=== PATIENT | female | born 1930 | race Caucasian/White ===

== ENCOUNTER 2017-08-20 18:41 | Emergency (ER) | payer OTHER, BC ==
[~2017-08-20] VITALS: Ht 157.5 cm; Wt 64.6 kg
[~2017-08-20 18:41] MED LIST: ACIPHEX20 MG PO; ASPIR-LOW81 MG PO; CHILD ASPIRIN81 M1 PO; CHLORDIAZEPOXI1 EAC1 PO; COUMADIN PO; CYANOCOBALAM1000 MCG PO; Coumadin dosing per PO; DAILY VITAMIN1 EAC4 PO; FEOSOL325 MG PO; FERROUS SULFAT325 MG PO; HYDROCODON-ACE1 EAC7 PO; LIBRAX, CLI1 CAPSULE PO; LIPITOR10 MG PO; LOVENOX40 MG/0.4 SC; METAMUCIL FIBE3.4 GM PO; METAMUCIL0.52 GM PO; METOPROLOL TART25 MG PO; MIGRAINE FORMU1 EACH PO; MUCINEX NASAL SPRAY BOTH NARES; Metamucil Packet PO; PERCOCET 5/31 TABLET PO; Proventil,Ventolin H IH; REFRESH EYE DR1 EACH BOTH EYES; RESTASIS 01 DROP/0.4 BOTH EYES; SENOKOT S,PE1 TABLET PO; TOPROL XL25 MG PO; TYLENOL EXTRA500 MG PO; Toprol XL PO; VITAMIN D2000 INTUN PO; VITAMIN D2000 UNIT PO; VITAMIN D31000 UNI2 PO; Vicodin,Lortab 5/500 PO; Vitamin B-12 PO
[2017-08-20 19:04] LABS: BASOPHIL (%) 1.2 % (0-1); BASOPHIL COUNT 0.1 K/uL (0-0.1); EOSINOPHIL (%) 4.1 % (0-5); EOSINOPHIL COUNT 0.4 K/uL (0-0.3); HEMATOCRIT 36.1 % (36.0-46.0); IMMATURE GRANULOCYTE (%) 0.1 % (0.0-0.7); LYMPHOCYTE (%) 40.6 % (15-42); LYMPHOCYTE COUNT 3.8 K/uL (1.0-2.8); MCH 30.5 PG (29.0-34.0); MCHC 33.2 G/DL (30.0-36.0); MCV 91.6 FL (83-99); MONOCYTE (%) 10.3 % (3-12); NEUTROPHIL (%) 43.7 % (45-76); NEUTROPHIL COUNT 4.1 K/uL (1.8-6.4); PLATELET COUNT 244 K/uL (156-360); RBC DIS.WIDTH-CV 12.8 % (11.8-14.6); RBC DIS.WIDTH-SD 42.9 % (39-53); RED BLOOD COUNT 3.94 M/uL (3.80-5.20); WHITE BLOOD COUNT 9.3 K/uL (4.1-10.2)
[2017-08-20 19:10] LABS: INTER. NORMALIZED RATIO 0.9
[2017-08-20 19:13] LABS: PTT 26.8 SEC (25-37)
[2017-08-20 19:28] LABS: AMYLASE 64 IU/L (1-118); CHLORIDE 109 mEq/L (99-109); POTASSIUM 3.9 mEq/L (3.7-5.4); SODIUM 144 mEq/L (136-147); TROP-I INTERPRETATION NEGATIVE; TROPONIN-I < 0.01 ng/mL (0.0-0.30)
[2017-08-20 19:30] LABS: GLUCOSE 98 mg/dL (70-99)
[2017-08-20 19:33] LABS: SERUM ETHYL ALCOHOL < 10 mg/dL
[2017-08-20 19:34] LABS: CREATININE 0.8 mg/dL (0.6-1.3); GFR ESTIMATE (CALCULATED) > 59 mL/min/; UREA NITROGEN (BUN) 20 mg/dL (9-23)
[2017-08-20 19:37] LABS: LIPASE 138 U/L (1.0-51.0)
[2017-08-20 21:40] VITALS: BP 148/81
== END 2017-08-20 21:40 | disposition home or self-care (01) ==
LOC: EME 18:41
PROVIDERS: Emergency Medicine
DX: G43.009 Migraine without aura, not intractable, without status migrainosus (principal); K21.9 Gastro-esophageal reflux disease without esophagitis; I10 Essential (primary) hypertension; Z86.711 Personal history of pulmonary embolism; Z86.718 Personal history of other venous thrombosis and embolism; Z96.651 Presence of right artificial knee joint; Z88.5 Allergy status to narcotic agent; Z88.2 Allergy status to sulfonamides; Z88.8 Allergy status to other drugs, medicaments and biological substances; Z91.041 Radiographic dye allergy status
CPT/HCPCS: 70450; 80048; 81003; 82150; 83690; 84484; 85025; 85610; 85730; 86850; 86900; 86901; 93005; 99281; 99285; G0480

== ENCOUNTER 2017-09-18 15:36 | Inpatient (IN) | payer OTHER, BC ==
[~2017-09-18] VITALS: Ht 154.9 cm; Wt 64.7 kg
[~2017-09-18 15:36] MED LIST changes: +FLONASE16 G1 BOTH NARES; +LOPRESSOR25 MG PO; -MUCINEX NASAL SPRAY BOTH NARES
[2017-09-18 16:16] LABS: BASOPHIL (%) 1.2 % (0-1); BASOPHIL COUNT 0.1 K/uL (0-0.1); EOSINOPHIL (%) 5.5 % (0-5); EOSINOPHIL COUNT 0.5 K/uL (0-0.3); HEMOGLOBIN 12.3 G/DL (11.9-15.5); IMMATURE GRANULOCYTE (%) 0.3 % (0.0-0.7); LYMPHOCYTE (%) 31.3 % (15-42); MCH 30.8 PG (29.0-34.0); MCHC 34.2 G/DL (30.0-36.0); MCV 90.2 FL (83-99); MONOCYTE (%) 8.5 % (3-12); MONOCYTE COUNT 0.8 K/uL (0-0.8); NEUTROPHIL (%) 53.2 % (45-76); PLATELET COUNT 262 K/uL (156-360); RBC DIS.WIDTH-SD 42.4 % (39-53); RED BLOOD COUNT 3.99 M/uL (3.80-5.20); WHITE BLOOD COUNT 9.4 K/uL (4.1-10.2)
[2017-09-18 16:38] LABS: TROP-I INTERPRETATION NEGATIVE; TROPONIN-I < 0.01 ng/mL (0.0-0.30)
[2017-09-18 17:07] LABS: CHLORIDE 107 mEq/L (99-109); POTASSIUM 3.6 mEq/L (3.7-5.4); SODIUM 142 mEq/L (136-147)
[2017-09-18 17:09] LABS: GLUCOSE 120 mg/dL (70-99)
[2017-09-18 17:10] LABS: TOTAL PROTEIN 6.5 g/dL (6.4-8.3)
[2017-09-18 17:11] LABS: TOTAL BILIRUBIN 0.5 mg/dL (0.0-1.0)
[2017-09-18 17:13] LABS: ALKALINE PHOSPHATASE 76 IU/L (3-129); CREATININE 0.7 mg/dL (0.6-1.3); GFR ESTIMATE (CALCULATED) > 59 mL/min/
[2017-09-18 17:14] LABS: UREA NITROGEN (BUN) 16 mg/dL (9-23)
[2017-09-18 17:15] LABS: AST (GOT) 19 IU/L (2-34)
[2017-09-18 17:16] LABS: ALT (GPT) 16 IU/L (3-49)
[2017-09-18] MEDS ORDERED: ADULT ASPIRIN81 MG PO (17:57)
[2017-09-18] MEDS ORDERED: LIBRAX PO (18:00)
[2017-09-18 19:50] VITALS: BP 162/73
[2017-09-18 23:04] VITALS: BP 147/65
[2017-09-19 04:21] VITALS: BP 132/61
[2017-09-19 05:27] LABS: APPEARANCE CLEAR ((CLEAR)); BILIRUBIN NEGATIVE; BLOOD MODERATE; COLOR YELLOW ((YELLOW)); GLUCOSE (STRIP) NEGATIVE; KETONES NEGATIVE; LEUKOCYTES NEGATIVE; NITRITE NEGATIVE; PROTEIN (STRIP) NEGATIVE; SPECIFIC GRAVITY 1.012 (1.000-1.030); UROBILINOGEN 0.2 MG/DL (0.2-1.0)
[2017-09-19 05:40] LABS: BACTERIA NONE SEEN /HPF; EPITHELIAL CELLS NONE SEEN /HPF; MUCUS TRACE /LPF; RED BLOOD CELLS 0-5 /HPF (0-5); UCUL ADDED? NO; WHITE BLOOD CELLS 0-5 /HPF (0-5)
[2017-09-19 06:14] LABS: HEMATOCRIT 29.4 % (36.0-46.0)
[2017-09-19 06:15] LABS: HEMOGLOBIN 9.6 G/DL (11.9-15.5)
[2017-09-19 06:28] LABS: CHLORIDE 107 MEQ/L (99-109); CREATININE 0.6 MG/DL (0.6-1.3); GFR ESTIMATE (CALCULATED) > 59 mL/min/; GLUCOSE 119 mg/dL (70-99); POTASSIUM 3.6 MEQ/L (3.7-5.4); SODIUM 139 MEQ/L (136-147); UREA NITROGEN (BUN) 10 mg/dL (9-23)
[2017-09-19 10:50] LABS: HEMATOCRIT 29.1 % (36.0-46.0); HEMOGLOBIN 9.5 G/DL (11.9-15.5); MCV 92.4 FL (83-99)
[2017-09-19 15:59] VITALS: BP 119/58
[2017-09-19 19:38] VITALS: BP 118/57
[2017-09-20] VITALS (8 sets, daily range): BP systolic 103–145; BP diastolic 53–66
[2017-09-20 06:26] LABS: HEMATOCRIT 25.6 % (36.0-46.0); HEMOGLOBIN 8.1 G/DL (11.9-15.5); MCV 92.8 FL (83-99)
[2017-09-21] VITALS (13 sets, daily range): BP systolic 109–143; BP diastolic 50–85
[2017-09-21 05:47] LABS: BASOPHIL COUNT 0.1 K/uL (0-0.1); EOSINOPHIL (%) 4.5 % (0-5); EOSINOPHIL COUNT 0.5 K/uL (0-0.3); HEMATOCRIT 24.2 % (36.0-46.0); HEMOGLOBIN 7.9 G/DL (11.9-15.5); IMMATURE GRANULOCYTE (%) 0.2 % (0.0-0.7); LYMPHOCYTE (%) 31.2 % (15-42); LYMPHOCYTE COUNT 3.3 K/uL (1.0-2.8); MCH 30.5 PG (29.0-34.0); MCHC 32.6 G/DL (30.0-36.0); MCV 93.4 FL (83-99); MONOCYTE (%) 11.5 % (3-12); MONOCYTE COUNT 1.2 K/uL (0-0.8); NEUTROPHIL (%) 51.6 % (45-76); NEUTROPHIL COUNT 5.4 K/uL (1.8-6.4); PLATELET COUNT 196 K/uL (156-360); RBC DIS.WIDTH-CV 13.1 % (11.8-14.6); WHITE BLOOD COUNT 10.5 K/uL (4.1-10.2)
[2017-09-21 05:53] LABS: RED BLOOD COUNT 2.59 M/uL (3.80-5.20)
[2017-09-21 06:09] LABS: ALBUMIN 2.9 G/DL (3.2-4.8); ALKALINE PHOSPHATASE 45 IU/L (3-129); ALT (GPT) 12 IU/L (3-49); AST (GOT) 12 IU/L (2-34); CHLORIDE 106 MEQ/L (99-109); CREATININE 0.7 MG/DL (0.6-1.3); GFR ESTIMATE (CALCULATED) > 59 mL/min/; GLUCOSE 93 mg/dL (70-99); POTASSIUM 4.2 MEQ/L (3.7-5.4); SODIUM 141 MEQ/L (136-147); TOTAL BILIRUBIN 0.5 MG/DL (0.0-1.0); TOTAL PROTEIN 4.9 G/DL (6.4-8.3); UREA NITROGEN (BUN) 18 mg/dL (9-23)
[2017-09-22 03:57] VITALS: BP 142/72
[2017-09-22 05:55] LABS: INTER. NORMALIZED RATIO 1.2
[2017-09-22 06:19] LABS: BASOPHIL COUNT 0.1 K/uL (0-0.1); CHLORIDE 107 MEQ/L (99-109); CREATININE 0.7 MG/DL (0.6-1.3); EOSINOPHIL COUNT 0.5 K/uL (0-0.3); GFR ESTIMATE (CALCULATED) > 59 mL/min/; GLUCOSE 103 mg/dL (70-99); IMMATURE GRANULOCYTE (%) 0.3 % (0.0-0.7); LYMPHOCYTE (%) 24.3 % (15-42); LYMPHOCYTE COUNT 2.2 K/uL (1.0-2.8); MCH 29.6 PG (29.0-34.0); MCHC 33.1 G/DL (30.0-36.0); MONOCYTE (%) 10.4 % (3-12); MONOCYTE COUNT 0.9 K/uL (0-0.8); NEUTROPHIL COUNT 5.2 K/uL (1.8-6.4); PLATELET COUNT 187 K/uL (156-360); POTASSIUM 4.1 MEQ/L (3.7-5.4); RBC DIS.WIDTH-CV 13.3 % (11.8-14.6); SODIUM 140 MEQ/L (136-147); UREA NITROGEN (BUN) 20 mg/dL (9-23)
[2017-09-22 06:26] LABS: HEMOGLOBIN 10.6 G/DL (11.9-15.5); MCV 89.4 FL (83-99); RED BLOOD COUNT 3.58 M/uL (3.80-5.20)
[2017-09-22 08:19] VITALS: BP 165/74
[2017-09-22 11:43] VITALS: BP 144/64
[2017-09-22] MEDS ORDERED: SENNA PLUS TAB1 EACH PO (12:14)
[2017-09-22] MEDS ORDERED: OXYCODONE HCL5 MG PO (12:15)
[2017-09-22] MEDS ORDERED: COUMADIN1 MG PO (12:18)
[2017-09-22] MEDS ORDERED: ULTRAM50 MG PO (15:10)
== END 2017-09-22 14:25 | DRG 482 ==
LOC: EME 15:36 → 3EAST 17:18 → EDOF 17:18 → ENRESERV 17:19 → 3EAST 18:07
PROVIDERS: Emergency Medicine; Hospitalist; Orthopaedic Surgery; Student in an Organized Health Care Education/Training Program
PROC: 0QS604Z Reposition Right Upper Femur with Internal Fixation Device, Open Approach (ICD-10-PCS; principal; 2017-09-19)
PROC: 30233N1 Transfusion of Nonautologous Red Blood Cells into Peripheral Vein, Percutaneous Approach (ICD-10-PCS; 2017-09-21)
DX: S72.141A Displaced intertrochanteric fracture of right femur, initial encounter for closed fracture (principal); W01.0XXA Fall on same level from slipping, tripping and stumbling without subsequent striking against object, initial encounter; D64.9 Anemia, unspecified; I10 Essential (primary) hypertension; E78.00 Pure hypercholesterolemia, unspecified; K21.9 Gastro-esophageal reflux disease without esophagitis; G43.109 Migraine with aura, not intractable, without status migrainosus; E78.5 Hyperlipidemia, unspecified; M47.892 Other spondylosis, cervical region; M81.0 Age-related osteoporosis without current pathological fracture; M50.220 Other cervical disc displacement, mid-cervical region, unspecified level; Z86.73 Personal history of transient ischemic attack (TIA), and cerebral infarction without residual deficits; Z96.653 Presence of artificial knee joint, bilateral; Z86.711 Personal history of pulmonary embolism; Z86.718 Personal history of other venous thrombosis and embolism; Z79.82 Long term (current) use of aspirin
CPT/HCPCS: 70450; 71045; 72125; 73502; 76000; 80048; 80053; 81003; 84484; 85014; 85018; 85025; 85610; 86850; 86900; 86901; 86920; 93005; 94010; 99202; 99281; 99285; C1713; J0171; J0330; J1100; J1885; J2405; J3370; J7030; P9016; S0020

== ENCOUNTER 2017-09-22 09:50 | Inpatient (IN) | payer OTHER, BC ==
[~2017-09-22] VITALS: Ht 154.9 cm; Wt 66.8 kg
[~2017-09-22 09:50] MED LIST changes: +ADULT ASPIRIN81 MG PO; +LIBRAX PO
[2017-09-22] MEDS ORDERED: SENNA PLUS TAB1 EACH PO (12:14)
[2017-09-22] MEDS ORDERED: OXYCODONE HCL5 MG PO (12:15)
[2017-09-22] MEDS ORDERED: COUMADIN1 MG PO (12:18)
[2017-09-22 14:56] VITALS: BP 157/76
[2017-09-22] MEDS ORDERED: ULTRAM50 MG PO (15:10)
[2017-09-23 05:59] VITALS: BP 179/81
[2017-09-23 06:10] LABS: HEMATOCRIT 33.3 % (36.0-46.0); HEMOGLOBIN 10.8 G/DL (11.9-15.5); MCH 29.8 PG (29.0-34.0); MCHC 32.4 G/DL (30.0-36.0); MCV 91.7 FL (83-99); PLATELET COUNT 217 K/uL (156-360); RBC DIS.WIDTH-SD 43.7 % (39-53); RED BLOOD COUNT 3.63 M/uL (3.80-5.20); WHITE BLOOD COUNT 8.2 K/uL (4.1-10.2)
[2017-09-23 06:33] LABS: ALBUMIN 2.8 G/DL (3.2-4.8); ALKALINE PHOSPHATASE 54 IU/L (3-129); ALT (GPT) 12 IU/L (3-49); AST (GOT) 13 IU/L (2-34); CHLORIDE 107 MEQ/L (99-109); CREATININE 0.6 MG/DL (0.6-1.3); GFR ESTIMATE (CALCULATED) > 59 mL/min/; GLUCOSE 108 mg/dL (70-99); POTASSIUM 4.2 MEQ/L (3.7-5.4); SODIUM 140 MEQ/L (136-147); TOTAL BILIRUBIN 0.8 MG/DL (0.0-1.0); UREA NITROGEN (BUN) 15 mg/dL (9-23)
[2017-09-23 06:39] LABS: INTER. NORMALIZED RATIO 2.7
[2017-09-23 15:14] VITALS: BP 134/57
[2017-09-24 05:32] VITALS: BP 159/71
[2017-09-24 09:47] LABS: INTER. NORMALIZED RATIO 4.5
[2017-09-24 15:25] VITALS: BP 131/61
[2017-09-25 05:18] VITALS: BP 130/65
[2017-09-25 05:40] LABS: INTER. NORMALIZED RATIO 3.9
[2017-09-25 18:17] VITALS: BP 134/62
[2017-09-26 04:40] LABS: INTER. NORMALIZED RATIO 3.1
[2017-09-26 05:16] VITALS: BP 125/59
[2017-09-26 15:13] VITALS: BP 130/61
[2017-09-27 05:46] VITALS: BP 160/70
[2017-09-27 06:52] LABS: INTER. NORMALIZED RATIO 2.6
[2017-09-27 16:01] VITALS: BP 137/66
[2017-09-28 05:33] VITALS: BP 137/72
[2017-09-28 06:07] LABS: INTER. NORMALIZED RATIO 2.7
[2017-09-28 15:14] VITALS: BP 110/56
[2017-09-29 04:09] VITALS: BP 134/68
[2017-09-29 06:19] LABS: INTER. NORMALIZED RATIO 3.1
[2017-09-29 15:10] VITALS: BP 117/57
[2017-09-30 05:01] VITALS: BP 141/71
[2017-09-30 06:24] LABS: INTER. NORMALIZED RATIO 3.1
[2017-09-30] MEDS ORDERED: COUMADIN1 MG PO (11:05)
[2017-09-30] MEDS ORDERED: ULTRAM50 MG PO (11:05)
== END 2017-09-30 12:15 | disposition home health service (06) | DRG 560 ==
LOC: 3WEST 09:50 → ENPENDDIS 09-30 → 3WEST 09-30 12:15
PROVIDERS: Physical Medicine & Rehabilitation Pain Medicine
PROC: F07M0ZZ Range of Motion and Joint Mobility Treatment of Musculoskeletal System - Whole Body (ICD-10-PCS; principal; 2017-09-22)
DX: S72.141D Displaced intertrochanteric fracture of right femur, subsequent encounter for closed fracture with routine healing (principal); D62 Acute posthemorrhagic anemia; S82.141D Displaced bicondylar fracture of right tibia, subsequent encounter for closed fracture with routine healing; W01.0XXD Fall on same level from slipping, tripping and stumbling without subsequent striking against object, subsequent encounter; E78.00 Pure hypercholesterolemia, unspecified; E78.5 Hyperlipidemia, unspecified; E83.51 Hypocalcemia; E87.6 Hypokalemia; G89.18 Other acute postprocedural pain; Z96.653 Presence of artificial knee joint, bilateral; H91.90 Unspecified hearing loss, unspecified ear; I10 Essential (primary) hypertension; J43.9 Emphysema, unspecified; K21.9 Gastro-esophageal reflux disease without esophagitis; K44.9 Diaphragmatic hernia without obstruction or gangrene; M47.812 Spondylosis without myelopathy or radiculopathy, cervical region; E77.8 Other disorders of glycoprotein metabolism; G43.109 Migraine with aura, not intractable, without status migrainosus; Z86.73 Personal history of transient ischemic attack (TIA), and cerebral infarction without residual deficits; Z79.01 Long term (current) use of anticoagulants; Z86.711 Personal history of pulmonary embolism; Z86.718 Personal history of other venous thrombosis and embolism; Z88.5 Allergy status to narcotic agent; Z88.2 Allergy status to sulfonamides; Z91.041 Radiographic dye allergy status; Z88.1 Allergy status to other antibiotic agents
CPT/HCPCS: 73502; 80053; 85027; 85610; 93971; 97110 GO; 97530 GP

== ENCOUNTER 2017-10-02 18:02 | Observation (INO) | payer OTHER, BC ==
[~2017-10-02] VITALS: Ht 157.5 cm; Wt 62.5 kg
[~2017-10-02 18:02] MED LIST changes: +COUMADIN1 MG PO; +OXYCODONE HCL5 MG PO; +SENNA PLUS TAB1 EACH PO; +ULTRAM50 MG PO
[2017-10-02 19:00] LABS: HEMATOCRIT 33.4 % (36.0-46.0); HEMOGLOBIN 11.1 G/DL (11.9-15.5); MCH 30.5 PG (29.0-34.0); MCHC 33.2 G/DL (30.0-36.0); MCV 91.8 FL (83-99); RBC DIS.WIDTH-CV 12.7 % (11.8-14.6); RBC DIS.WIDTH-SD 43.1 % (39-53); RED BLOOD COUNT 3.64 M/uL (3.80-5.20); WHITE BLOOD COUNT 13.5 K/uL (4.1-10.2)
[2017-10-02 19:01] LABS: PLATELET COUNT 426 K/uL (156-360)
[2017-10-02 19:06] LABS: INTER. NORMALIZED RATIO 2.3
[2017-10-02 19:08] LABS: CHLORIDE 103 mEq/L (99-109); SODIUM 139 mEq/L (136-147)
[2017-10-02 19:09] LABS: GLUCOSE 153 mg/dL (70-99)
[2017-10-02 19:13] LABS: CREATININE 0.7 mg/dL (0.6-1.3); GFR ESTIMATE (CALCULATED) > 59 mL/min/
[2017-10-02 19:14] LABS: UREA NITROGEN (BUN) 18 mg/dL (9-23)
[2017-10-02] MEDS ORDERED: ULTRAM50 MG PO (20:34)
[2017-10-02] MEDS ORDERED: SENNA PLUS TAB1 EACH PO (22:02)
[2017-10-03 00:51] VITALS: BP 164/73
[2017-10-03 06:11] LABS: HEMATOCRIT 32.3 % (36.0-46.0); HEMOGLOBIN 10.6 G/DL (11.9-15.5); MCH 29.9 PG (29.0-34.0); MCHC 32.8 G/DL (30.0-36.0); MCV 91.2 FL (83-99); PLATELET COUNT 421 K/uL (156-360); RBC DIS.WIDTH-CV 12.6 % (11.8-14.6); RBC DIS.WIDTH-SD 42.3 % (39-53); RED BLOOD COUNT 3.54 M/uL (3.80-5.20); WHITE BLOOD COUNT 13.2 K/uL (4.1-10.2)
[2017-10-03 06:19] LABS: INTER. NORMALIZED RATIO 2.3
[2017-10-03 06:30] VITALS: BP 160/65
[2017-10-03 06:32] LABS: CHLORIDE 101 MEQ/L (99-109); CREATININE 0.6 MG/DL (0.6-1.3); GFR ESTIMATE (CALCULATED) > 59 mL/min/; POTASSIUM 4.1 MEQ/L (3.7-5.4); SODIUM 138 MEQ/L (136-147); UREA NITROGEN (BUN) 15 mg/dL (9-23)
[2017-10-03 06:35] LABS: GLUCOSE 111 mg/dL (70-99)
[2017-10-03 07:39] VITALS: BP 137/76
[2017-10-03 11:39] VITALS: BP 158/70
[2017-10-03 16:20] VITALS: BP 164/74
[2017-10-03] MEDS ORDERED: TRAMADOL HCL50 MG PO (16:33)
== END 2017-10-03 17:42 ==
LOC: EME 18:02 → EDOF 23:39 → ENRESERV 23:45 → 3EAST 10-03 00:36
PROVIDERS: Internal Medicine; Nurse Practitioner Family
DX: S42.214A Unspecified nondisplaced fracture of surgical neck of right humerus, initial encounter for closed fracture (principal); W18.30XA Fall on same level, unspecified, initial encounter; Z79.01 Long term (current) use of anticoagulants; F03.90 Unspecified dementia, unspecified severity, without behavioral disturbance, psychotic disturbance, mood disturbance, and anxiety; M19.90 Unspecified osteoarthritis, unspecified site; Z86.73 Personal history of transient ischemic attack (TIA), and cerebral infarction without residual deficits; I10 Essential (primary) hypertension; E78.00 Pure hypercholesterolemia, unspecified; K21.9 Gastro-esophageal reflux disease without esophagitis; Z86.718 Personal history of other venous thrombosis and embolism; Z98.890 Other specified postprocedural states; Z88.2 Allergy status to sulfonamides; Z88.5 Allergy status to narcotic agent; Z88.8 Allergy status to other drugs, medicaments and biological substances
CPT/HCPCS: 70450; 73030; 73060; 73070; 73502; 73552; 80048; 85027; 85610; 85730; 99281; 99285; G0378; G8987 GO CN; G8988 GO CK; G8989 GO CN

== ENCOUNTER 2017-10-21 13:24 | Emergency (ER) | payer OTHER, BC ==
[~2017-10-21] VITALS: Ht 157.5 cm; Wt 62.0 kg
[~2017-10-21 13:24] MED LIST changes: +TRAMADOL HCL50 MG PO
[2017-10-21 14:54] LABS: INTER. NORMALIZED RATIO 2.4
[2017-10-21 15:39] VITALS: BP 108/69
== END 2017-10-21 15:40 | disposition home or self-care (01) ==
LOC: EME 13:24
PROVIDERS: Physician Assistant
DX: M79.661 Pain in right lower leg (principal); Z86.718 Personal history of other venous thrombosis and embolism; I10 Essential (primary) hypertension; Z79.82 Long term (current) use of aspirin; K21.9 Gastro-esophageal reflux disease without esophagitis; Z96.641 Presence of right artificial hip joint; J44.9 Chronic obstructive pulmonary disease, unspecified; Z96.651 Presence of right artificial knee joint; Z88.5 Allergy status to narcotic agent; Z88.2 Allergy status to sulfonamides
CPT/HCPCS: 85610; 93971; 99281; 99284

== ENCOUNTER 2017-11-02 12:45 | Emergency (ER) | payer OTHER, BC ==
[~2017-11-02] VITALS: Ht 160 cm; Wt 65.8 kg
[2017-11-02 13:21] LABS: BASOPHIL (%) 0.7 % (0-1); BASOPHIL COUNT 0.1 K/uL (0-0.1); EOSINOPHIL (%) 2.8 % (0-5); EOSINOPHIL COUNT 0.3 K/uL (0-0.3); HEMATOCRIT 30.8 % (36.0-46.0); HEMOGLOBIN 10.1 G/DL (11.9-15.5); IMMATURE GRANULOCYTE (%) 0.3 % (0.0-0.7); LYMPHOCYTE (%) 27.7 % (15-42); LYMPHOCYTE COUNT 3.4 K/uL (1.0-2.8); MCH 30.7 PG (29.0-34.0); MCHC 32.8 G/DL (30.0-36.0); MCV 93.6 FL (83-99); MONOCYTE (%) 8.5 % (3-12); NEUTROPHIL COUNT 7.3 K/uL (1.8-6.4); RBC DIS.WIDTH-CV 13.6 % (11.8-14.6); RBC DIS.WIDTH-SD 46.5 % (39-53); RED BLOOD COUNT 3.29 M/uL (3.80-5.20); WHITE BLOOD COUNT 12.1 K/uL (4.1-10.2)
[2017-11-02 13:22] LABS: PLATELET COUNT 328 K/uL (156-360)
[2017-11-02 13:29] LABS: AMYLASE 39 IU/L (1-118); CHLORIDE 105 mEq/L (99-109); POTASSIUM 3.9 mEq/L (3.7-5.4); SODIUM 142 mEq/L (136-147)
[2017-11-02 13:30] LABS: INTER. NORMALIZED RATIO 1.2
[2017-11-02 13:31] LABS: GLUCOSE 110 mg/dL (70-99)
[2017-11-02 13:33] LABS: PTT 31.7 SEC (25-37)
[2017-11-02 13:34] LABS: SERUM ETHYL ALCOHOL < 10 mg/dL
[2017-11-02 13:35] LABS: CREATININE 0.7 mg/dL (0.6-1.3); GFR ESTIMATE (CALCULATED) > 59 mL/min/
[2017-11-02 13:36] LABS: UREA NITROGEN (BUN) 15 mg/dL (9-23)
[2017-11-02 13:38] LABS: LIPASE 63 U/L (1.0-51.0)
[2017-11-02 13:44] LABS: TROP-I INTERPRETATION NEGATIVE; TROPONIN-I < 0.01 ng/mL (0.0-0.30)
[2017-11-02 13:55] LABS: APPEARANCE CLEAR ((CLEAR)); BILIRUBIN NEGATIVE; BLOOD NEGATIVE; COLOR YELLOW ((YELLOW)); GLUCOSE (STRIP) NEGATIVE; KETONES NEGATIVE; LEUKOCYTES NEGATIVE; NITRITE NEGATIVE; PROTEIN (STRIP) NEGATIVE; SPECIFIC GRAVITY 1.006 (1.000-1.030); UCUL ADDED? NO; UROBILINOGEN 0.2 MG/DL (0.2-1.0)
[2017-11-02 14:08] LABS: AMPHETAMINE NEGATIVE (500 ng/mL); BARBITURATES NEGATIVE (200 ng/mL); BENZODIAZEPINES NEGATIVE (150 ng/mL); BUPRENORPHINE NEGATIVE (10 ng/mL); COCAINE NEGATIVE (150 ng/mL); METHADONE NEGATIVE (200 ng/mL); METHAMPHETAMINE NEGATIVE (500 ng/mL); OPIATES (MORPHINE) NEGATIVE (100 ng/mL); OXYCODONE NEGATIVE (100 ng/mL); PHENCYCLIDINE NEGATIVE (25 ng/mL); PROPOXYPHENE NEGATIVE (300 ng/mL); THC CANNABINOIDS NEGATIVE (50 ng/mL); TRICYCLIC ANTIDEPRESSANTS NEGATIVE (300 ng/mL)
[2017-11-02 15:16] VITALS: BP 134/77
== END 2017-11-02 15:19 | disposition home or self-care (01) ==
LOC: EME 12:45
PROVIDERS: Family Medicine
DX: G45.9 Transient cerebral ischemic attack, unspecified (principal); R29.700 NIHSS score 0; Z79.01 Long term (current) use of anticoagulants; Z86.711 Personal history of pulmonary embolism; Z86.718 Personal history of other venous thrombosis and embolism; I10 Essential (primary) hypertension; Z86.73 Personal history of transient ischemic attack (TIA), and cerebral infarction without residual deficits
CPT/HCPCS: 70450; 80048; 81003; 82150; 82948; 83690; 84484; 85025; 85610; 85730; 86850; 86900; 86901; 99281; 99285; G0480